=== PATIENT | male | born 1965 | race Caucasian/White ===

== ENCOUNTER 2025-03-09 13:55 | Inpatient (IN) | payer MEDICAID ==
[~2025-03-09] VITALS: Ht 195.6 cm; Wt 83.9 kg
[2025-03-09] MEDS ORDERED: METOPROLOL TARTRATE INJ 5 MG/5 ML AMPUL ONE (14:30)
[2025-03-09] MEDS ORDERED: METOPROLOL TARTRATE 50 MG TABLET ONE (14:31)
[2025-03-09] MEDS: METOPROLOL TARTRATE INJ 5 MG/5 ML AMPUL IV ONE (14:35)
[2025-03-09] MEDS: METOPROLOL TARTRATE 25 MG TABLET PO ONE (14:38)
[2025-03-09 14:39] LABS: PLATELET COUNT (AUTO) 302 K/uL (150-450); RED BLOOD CELL COUNT(AUTO) 4.82 MIL/uL (4.5-6.0); RED CELL DISTRIBUTION WIDTH 15.0 % (11.5-15.0); WHITE BLOOD COUNT (AUTO) 8.0 K/uL (4.3-11.0)
[2025-03-09 14:45] LABS: CALCIUM, SERUM 9.4 mg/dL (8.5-10.1); CREATININE 0.9 mg/dL (0.6-1.3); SODIUM SERUM 143.0 mmol/L (136-145); UREA NITROGEN, BLOOD 12.0 mg/dL (7-18)
[2025-03-09 14:58] LABS: ASPARTATE AMINOTRANSFERASE 28.0 U/L (15-37); NT-PRO BNP 3975.0 pg/mL (0-125); TOTAL PROTEIN, SERUM 7.4 g/dL (6.4-8.2)
[2025-03-09 14:59] LABS: INR 1.06 (0.91-1.10)
[2025-03-09] MEDS: FUROSEMIDE 40 MG/4 ML VIAL IV ONE ×2 (15:02→15:30)
[2025-03-09] MEDS: POTASSIUM CHLORIDE 20 MEQ TAB.PRT.SR PO ONE (15:30)
[2025-03-09] MEDS ORDERED: AMIODARONE 150 MG/3 ML VIAL IV ONE (19:15)
[2025-03-09] MEDS: AMIODARONE 450 MG in IV D5W 241 ML IV PRN (19:28)
[2025-03-09] MEDS ORDERED: Z GUARD REMEDY 4 OZ OINT TP PRN (21:00)
[2025-03-09] MEDS ORDERED: ACETAMINOPHEN 325 MG TABLET PO PRN (21:00)
[2025-03-09] MEDS ORDERED: ONDANSETRON HCL/PF 4 MG/2 ML VIAL IVP PRN (21:00)
[2025-03-09] MEDS ORDERED: MAGNESIUM HYDROXIDE 30 ML UDC PO PRN (21:00)
[2025-03-09] MEDS ORDERED: POTASSIUM CHLORIDE 10 MEQ TABLET.SA PO ONE (22:00)
[2025-03-09] MEDS: ENOXAPARIN SODIUM 80 MG/0.8 ML DISP.SYRIN SQ SCH (23:01)
[2025-03-10] VITALS (7 sets, daily range): BP systolic 132–152; BP diastolic 106–131; TEMP 97.7–98.5; O2SAT 94–96
[2025-03-10] MEDS: AMLODIPINE BESYLATE 5 MG TABLET PO SCH (00:57)
[2025-03-10] MEDS: AMIODARONE 150 MG/3 ML VIAL IV ONE (05:38)
[2025-03-10] MEDS ORDERED: ENOXAPARIN SODIUM 80 MG/0.8 ML DISP.SYRIN SQ SCH ×2 (06:20→11:00)
[2025-03-10] MEDS: PANTOPRAZOLE 40 MG TABLET.DR PO SCH (06:57)
[2025-03-10 07:47] LABS: CALCIUM, SERUM 8.8 mg/dL (8.5-10.1); CREATININE 1.2 mg/dL (0.6-1.3); PHOSPHORUS 3.5 mg/dL (2.5-4.9); SODIUM SERUM 146.0 mmol/L (136-145); UREA NITROGEN, BLOOD 15.0 mg/dL (7-18)
[2025-03-10 07:59] LABS: PLATELET COUNT (AUTO) 218 K/uL (150-450); RED BLOOD CELL COUNT(AUTO) 4.57 MIL/uL (4.5-6.0); RED CELL DISTRIBUTION WIDTH 14.6 % (11.5-15.0); WHITE BLOOD COUNT (AUTO) 6.9 K/uL (4.3-11.0)
[2025-03-10 08:35] LABS: LDL 109.0 mg/dL (0-99)
[2025-03-10] MEDS: FUROSEMIDE 40 MG/4 ML VIAL IV SCH (09:01)
[2025-03-10] MEDS: APIXABAN 5 MG TABLET PO SCH (09:01)
[2025-03-10] MEDS ORDERED: DOSING PER PHARMACY-AMIODARONE DRIP XX PRN (10:30)
[2025-03-10] MEDS: POTASSIUM CHLORIDE 20 MEQ TAB.PRT.SR PO SCH (11:01)
[2025-03-10] MEDS: AMIODARONE 450 MG in IV D5W 241 ML IV PRN (13:06)
[2025-03-11] VITALS: BP 157/112; TEMP 97.7; O2SAT 96
[2025-03-11 04:00] VITALS: BP 151/96; TEMP 97.7; O2SAT 96
[2025-03-11 07:25] LABS: PLATELET COUNT (AUTO) 229 K/uL (150-450); RED BLOOD CELL COUNT(AUTO) 4.61 MIL/uL (4.5-6.0); RED CELL DISTRIBUTION WIDTH 14.8 % (11.5-15.0); WHITE BLOOD COUNT (AUTO) 7.0 K/uL (4.3-11.0)
[2025-03-11 08:00] VITALS: BP 127/80; TEMP 97.5; O2SAT 95
[2025-03-11 08:00] LABS: CALCIUM, SERUM 8.5 mg/dL (8.5-10.1); CREATININE 1.1 mg/dL (0.6-1.3); PHOSPHORUS 3.9 mg/dL (2.5-4.9); SODIUM SERUM 145.0 mmol/L (136-145); UREA NITROGEN, BLOOD 17.0 mg/dL (7-18)
[2025-03-11] MEDS ORDERED: DIGOXIN INJ 0.5 MG/2 ML AMPUL IV SCH (10:00)
[2025-03-11] MEDS: POTASSIUM CHLORIDE 20 MEQ TAB.PRT.SR PO SCH (10:09)
[2025-03-11 12:00] VITALS: BP_SYST 122; BP_SYST 138; BP_DIAS 110; BP_DIAS 86; TEMP 97.5; O2SAT 97
[2025-03-11 16:00] VITALS: BP_SYST 118; BP_SYST 124; BP_SYST 128; BP_SYST 158; BP_DIAS 100; BP_DIAS 112; BP_DIAS 90; TEMP 97.7; O2SAT 96
[2025-03-11] MEDS: DIGOXIN INJ 0.5 MG/2 ML AMPUL IV SCH (16:55)
[2025-03-11 20:00] VITALS: BP 145/86; TEMP 98.2; O2SAT 100
[2025-03-12] VITALS (22 sets, daily range): BP systolic 124–162; BP diastolic 74–124; TEMP 97.9–98.9; O2SAT 94–100
[2025-03-12] MEDS ORDERED: ETOMIDATE 2 MG/ML VIAL ONE (06:36)
[2025-03-12] MEDS ORDERED: LIDOCAINE 1% INJ 50 ML MDV IJ ONE (06:36)
[2025-03-12] MEDS ORDERED: PROPOFOL 20 ML IV ONE (06:37)
[2025-03-12 07:07] LABS: PLATELET COUNT (AUTO) 262 K/uL (150-450); RED BLOOD CELL COUNT(AUTO) 4.90 MIL/uL (4.5-6.0); RED CELL DISTRIBUTION WIDTH 14.5 % (11.5-15.0); WHITE BLOOD COUNT (AUTO) 7.6 K/uL (4.3-11.0)
[2025-03-12 07:16] LABS: CALCIUM, SERUM 8.7 mg/dL (8.5-10.1); CREATININE 0.9 mg/dL (0.6-1.3); PHOSPHORUS 3.2 mg/dL (2.5-4.9); SODIUM SERUM 141.0 mmol/L (136-145); UREA NITROGEN, BLOOD 16.0 mg/dL (7-18)
[2025-03-12] MEDS: Magnesium 1GM/D5W 100ML PREMIX 100 ML IV SCH (07:55)
[2025-03-12] MEDS: POTASSIUM CHLORIDE 20 MEQ TAB.PRT.SR PO SCH (07:55)
[2025-03-12] MEDS ORDERED: POTASSIUM CHLORIDE 20 MEQ POWDER PACKET NG SCH (08:00)
[2025-03-12] MEDS: POTASSIUM CL. PREMIX PERIPHER. 50 ML IV SCH (11:53)
[2025-03-12] MEDS: POTASSIUM CHLORIDE 20 MEQ POWDER PACKET PO ONE (12:33)
[2025-03-12 14:59] LABS: ASPARTATE AMINOTRANSFERASE 20.0 U/L (15-37); CALCIUM, SERUM 9.0 mg/dL (8.5-10.1); CREATININE 0.9 mg/dL (0.6-1.3); SODIUM SERUM 140.0 mmol/L (136-145); TOTAL PROTEIN, SERUM 7.0 g/dL (6.4-8.2); UREA NITROGEN, BLOOD 14.0 mg/dL (7-18)
[2025-03-12] MEDS: AMIODARONE HCL 200 MG TABLET PO SCH (17:10)
[2025-03-13] VITALS: BP 146/92; TEMP 97.7; O2SAT 99
[2025-03-13 04:00] VITALS: BP 145/95; TEMP 98.1; O2SAT 100
[2025-03-13 08:00] VITALS: BP_SYST 148; BP_SYST 150; BP_SYST 166; BP_DIAS 100; BP_DIAS 90; BP_DIAS 92; TEMP 97.7; O2SAT 97
[2025-03-13] MEDS ORDERED: APIX5TAB PO ×2 (08:22→08:40)
[2025-03-13] MEDS ORDERED: DRON400T6 PO ×2 (08:22→08:40)
[2025-03-13] MEDS ORDERED: FURO40TA5 PO ×2 (08:22→08:40)
[2025-03-13] MEDS ORDERED: AMLO-212 PO ×2 (08:22→08:40)
[2025-03-13] MEDS: DRONEDARONE HYDROCHLORIDE 400 MG TABLET PO SCH (08:24)
[2025-03-13] MEDS: POTASSIUM CHLORIDE 20 MEQ TAB.PRT.SR PO SCH (08:24)
[2025-03-13] MEDS: FUROSEMIDE 40 MG TABLET PO SCH (08:25)
[2025-03-13] MEDS ORDERED: POTA-88 PO (08:35)
[2025-03-13 12:00] VITALS: BP 139/89; TEMP 97.9; O2SAT 97
[2025-03-13] MEDS: FLU VACC 2025-26(6MOS UP) 0.5 ML SYRINGE IM ONE (14:08)
== END 2025-03-13 15:09 | disposition home or self-care (01) | DRG 201 ==
LOC: ER 14:00 → TELE1 21:41 → TELE-TD 03-10 05:57 → ICU 03-12 05:57 → TELE1 03-12 20:31
PROVIDERS: ADMIT Nurse Practitioner Family
PROC: 5A2204Z Restoration of Cardiac Rhythm, Single (ICD-10-PCS; principal; 2025-03-12)
DX: I48.91 Unspecified atrial fibrillation (principal); I50.21 Acute systolic (congestive) heart failure; G72.1 Alcoholic myopathy; I11.0 Hypertensive heart disease with heart failure; F10.21 Alcohol dependence, in remission; K70.10 Alcoholic hepatitis without ascites; E87.6 Hypokalemia; R73.9 Hyperglycemia, unspecified
CPT/HCPCS: 36415; 71045-TC; 80048-TC; 80053-TC; 80061-TC; 82962-TC; 83690-TC; 83735-TC; 83880; 84100-TC; 84439-TC; 84443-TC; 84484-TC; 85025-TC; 85610-TC; 93307-TC; A4223; G0378; J0282; J1160; J1650; J1938; J2704; J3475; J3480; J3490; J7050; J7060; J7120